=== PATIENT | female | born 1990 | race Caucasian/White ===

== ENCOUNTER 2018-09-21 13:59 | Emergency (ER) | payer OTHER ==
[2018-09-21] MEDS: MECLIZINE 12.5 MG TAB PO (15:24)
[2018-09-21] MEDS: KETOROLAC 30 MG INJ IV (15:26)
== END 2018-09-21 16:09 | disposition home or self-care (01) ==
LOC: FTE 16:09
DX: R51 Headache (principal); R42 Dizziness and giddiness
CPT/HCPCS: 81025; 82962; 93005; 96374; 99284-25